=== PATIENT | female | born 1965 | race Caucasian/White ===

== ENCOUNTER 2016-04-04 10:35 | Emergency (ER) | payer SELFPAY ==
[~2016-04-04] VITALS: Ht 175.3 cm; Wt 65.0 kg
[~2016-04-04 10:35] MED LIST: CLON0.5T PO; MACR100C2 PO; PROZ20CA11 PO; ZOFR4TAB3 SL
[2016-04-04 10:37] VITALS: BP 148/68; PULSE 110; RESP 12; TEMP 98.4; O2SAT 98
[2016-04-04] MEDS ORDERED: SODIUM CHLOR 0.9% 1000 ML INJ 1,000 ML IV SCH (11:30)
[2016-04-04] MEDS ORDERED: SODIUM CHLORIDE 0.9% FLUSH 5 ML FLUSH IVF PRN (11:30)
[2016-04-04] MEDS ORDERED: ONDANSETRON HCL 4 MG/2 ML VIAL IVP ONE (11:30)
[2016-04-04 12:00] VITALS: BP 153/58; PULSE 78; RESP 16; O2SAT 97
--- NOTE | 2016-04-04 12:06 | PD ---
HPI Chief Complaint: GI Complaint Time Seen by Provider: 11:20 Travel History International Travel<30 days: No Contact w/Intl Traveler<30days: No Traveled to known affect area: No History of Present Illness HPI Patient is a 50-year-old female presenting to the emergency room for evaluation of nausea, vomiting, abdominal pain. Patient states her symptoms started 5 days ago on . She was unable to keep anything down. She states that she has not vomited yesterday or today but continues to feel nauseated and continues to have an abdominal pain. She also reports dysuria. Patient states when the symptoms started she felt chilled and very tired. Patient reports the abdominal pain is across the bilateral lower quadrants, worse on the right than the left. Patient reports the same symptoms occurred 2 months ago when she was diagnosed with a bladder infection. Patient's last menstrual cycle was a year ago and she has not been sexually active, she denies any vaginal discharge. Patient denies any illicit drug use or alcohol use. She does endorse tobacco use. PFSH Past Medical History Anxiety: Yes Depression: Yes Diminished Hearing: No Reproductive: Yes (endometriosis) Immunizations Current: No Past Surgical History Gynecologic Surgery: Yes (laparoscopic surgery for endometriosis) Social History Alcohol Use: No Tobacco Use: Yes (1 PK DAY) Substance Use: Yes (hx methadone, opioid abuse, denies currently) Allergies-Medications (Allergen,Severity, Reaction): Coded Allergies: No Known Allergies (Verified , 01/28/16) Reported Meds & Prescriptions Reported Meds & Active Scripts Active Zofran Odt (Ondansetron Odt) 4 Mg Tab 4 Mg SL Q6HR PRN Macrobid (Nitrofurantoin Monoh/Nitrofur Macro) 100 Mg Cap 100 Mg PO BID 10 Days Reported Clonazepam 0.5 Mg Tab 0.5 Mg PO DAILY Prozac (Fluoxetine HCl) 20 Mg Cap 20 Mg PO DAILY Review of Systems Except as stated in HPI: all other systems reviewed are Neg General / Constitutional: Positive: Fever (subjective), Chills HENT: No: Headaches, Lightheadedness Cardiovascular: No: Chest Pain or Discomfort Respiratory: No: Shortness of Breath Gastrointestinal: Positive: Nausea, Vomiting, Abdominal Pain, Loss of Appetite , No: Changes in Bowel Habits Genitourinary: Positive: Dysuria Musculoskeletal: Positive: Myalgias (lower back) Neurologic: No: Dizziness, Focal Abnormalities Psychiatric: No: Anxiety, Depression, Suicidal Ideations Physical Exam Narrative GENERAL: Thin, well-developed, alert female. Resting comfortably in no acute distress. SKIN: Warm and dry. HEAD: Atraumatic. Normocephalic. EYES: Pupils equal and round. No scleral icterus. No injection or drainage. ENT: No nasal bleeding or discharge. Mucous membranes pink and moist. NECK: Trachea midline. No JVD. CARDIOVASCULAR: Regular rate and rhythm. No murmur appreciated. RESPIRATORY: No accessory muscle use. Clear to auscultation. Breath sounds equal bilaterally. GASTROINTESTINAL: Abdomen soft, mildly tender to palpation in right and left lower quadrants, worse on the right than the left, nondistended. Hepatic and splenic margins not palpable. Positive bowel sounds no rebound, no guarding. MUSCULOSKELETAL: No obvious deformities. No clubbing. No cyanosis. No edema. Positive CVAT on the right NEUROLOGICAL: Awake and alert. No obvious cranial nerve deficits. Motor grossly within normal limits. Normal speech. PSYCHIATRIC: Appropriate mood and affect; insight and judgment normal. Data Data Last Documented VS Vital Signs Date Time Temp Pulse Resp B/P Pulse Ox O2 Delivery O2 Flow Rate FiO2 04/04/16 12:00 78 16 153/58 97 Room Air 04/04/16 10:37 98.4 Orders Beta Hcg (Quant/Titer) (04/04/16 11:30) Complete Blood Count With Diff (04/04/16 11:30) Comprehensive Metabolic Panel (04/04/16 11:30) Lipase (04/04/16 11:30) Lactic Acid (04/04/16 11:30) Urinalysis - C+S If Indicated (04/04/16 11:30) Ct Abd/Pel W Iv Contrast(Rout) (04/04/16 11:30) Iv Access Insert/Monitor (04/04/16 11:30) Ecg Monitoring (04/04/16 11:30) Oximetry (04/04/16 11:30) NPO (04/04/16 11:30) Ondansetron Inj (Zofran Inj) (04/04/16 11:30) Sodium Chlor 0.9% 1000 Ml Inj (Ns 1000 M (04/04/16 11:30) Sodium Chloride 0.9% Flush (Ns Flush) (04/04/16 11:30) Iohexol 350 Inj (Omnipaque 350 Inj) (04/04/16 13:28) Ketorolac Inj (Toradol Inj) (04/04/16 13:45) Orphenadrine Inj (Norflex Inj) (04/04/16 13:45) Labs Laboratory Tests Test 04/04/16 04/04/16 10:50 11:50 White Blood Count 12.0 TH/MM3 Red Blood Count 5.12 MIL/MM3 Hemoglobin 15.1 GM/DL Hematocrit 43.3 % Mean Corpuscular Volume 84.5 FL Mean Corpuscular Hemoglobin 29.5 PG Mean Corpuscular Hemoglobin 34.9 % Concent Red Cell Distribution Width 13.1 % Platelet Count 267 TH/MM3 Mean Platelet Volume 7.8 FL Neutrophils (%) (Auto) 62.0 % Lymphocytes (%) (Auto) 27.3 % Monocytes (%) (Auto) 9.4 % Eosinophils (%) (Auto) 0.6 % Basophils (%) (Auto) 0.7 % Neutrophils # (Auto) 7.4 TH/MM3 Lymphocytes # (Auto) 3.3 TH/MM3 Monocytes # (Auto) 1.1 TH/MM3 Eosinophils # (Auto) 0.1 TH/MM3 Basophils # (Auto) 0.1 TH/MM3 CBC Comment DIFF FINAL Differential Comment Sodium Level 136 MEQ/L Potassium Level 3.0 MEQ/L Chloride Level 101 MEQ/L Carbon Dioxide Level 26.6 MEQ/L Anion Gap 8 MEQ/L Blood Urea Nitrogen 12 MG/DL Creatinine 0.85 MG/DL Estimat Glomerular Filtration 71 ML/MIN Rate Random Glucose 94 MG/DL Lactic Acid Level 1.8 mmol/L Calcium Level 9.0 MG/DL Total Bilirubin 0.4 MG/DL Aspartate Amino Transf 9 U/L (AST/SGOT) Alanine Aminotransferase 14 U/L (ALT/SGPT) Alkaline Phosphatase 84 U/L Total Protein 7.3 GM/DL Albumin 3.5 GM/DL Lipase 247 U/L Human Chorionic Gonadotropin, 10 MIU/ML Quant Urine Color DARK-YELLOW Urine Turbidity HAZY Urine pH 6.0 Urine Specific [place] 1.027 Urine Protein 30 mg/dL Urine Glucose (UA) TRACE mg/dL Urine Ketones TRACE mg/dL Urine Occult Blood SMALL Urine Nitrite NEG Urine Bilirubin NEG Urine Urobilinogen 2.0 MG/DL Urine Leukocyte Esterase SMALL Urine RBC 3 /hpf Urine WBC 4 /hpf Urine Squamous Epithelial 10 /hpf Cells Urine Mucus MANY /lpf Microscopic Urinalysis Comment CULT NOT INDICATED MDM Medical Decision Making Medical Screen Exam Complete: Yes Emergency Medical Condition: Yes Medical Record Reviewed: Yes Interpretation(s) Last Impressions Abdomen/Pelvis CT 04/04/16 1130 Signed Impressions: Service Date/Time: Monday, April 04, 2016 13:17 - CONCLUSION: No acute CT findings in the abdomen or pelvis. Matt Maxwell MD Laboratory Tests Test 04/04/16 04/04/16 10:50 11:50 White Blood Count 12.0 TH/MM3 Red Blood Count 5.12 MIL/MM3 Hemoglobin 15.1 GM/DL Hematocrit 43.3 % Mean Corpuscular Volume 84.5 FL Mean Corpuscular Hemoglobin 29.5 PG Mean Corpuscular Hemoglobin 34.9 % Concent Red Cell Distribution Width 13.1 % Platelet Count 267 TH/MM3 Mean Platelet Volume 7.8 FL Neutrophils (%) (Auto) 62.0 % Lymphocytes (%) (Auto) 27.3 % Monocytes (%) (Auto) 9.4 % Eosinophils (%) (Auto) 0.6 % Basophils (%) (Auto) 0.7 % Neutrophils # (Auto) 7.4 TH/MM3 Lymphocytes # (Auto) 3.3 TH/MM3 Monocytes # (Auto) 1.1 TH/MM3 Eosinophils # (Auto) 0.1 TH/MM3 Basophils # (Auto) 0.1 TH/MM3 CBC Comment DIFF FINAL Differential Comment Sodium Level 136 MEQ/L Potassium Level 3.0 MEQ/L Chloride Level 101 MEQ/L Carbon Dioxide Level 26.6 MEQ/L Anion Gap 8 MEQ/L Blood Urea Nitrogen 12 MG/DL Creatinine 0.85 MG/DL Estimat Glomerular Filtration 71 ML/MIN Rate Random Glucose 94 MG/DL Lactic Acid Level 1.8 mmol/L Calcium Level 9.0 MG/DL Total Bilirubin 0.4 MG/DL Aspartate Amino Transf 9 U/L (AST/SGOT) Alanine Aminotransferase 14 U/L (ALT/SGPT) Alkaline Phosphatase 84 U/L Total Protein 7.3 GM/DL Albumin 3.5 GM/DL Lipase 247 U/L Human Chorionic Gonadotropin, 10 MIU/ML Quant Urine Color DARK-YELLOW Urine Turbidity HAZY Urine pH 6.0 Urine Specific [place] 1.027 Urine Protein 30 mg/dL Urine Glucose (UA) TRACE mg/dL Urine Ketones TRACE mg/dL Urine Occult Blood SMALL Urine Nitrite NEG Urine Bilirubin NEG Urine Urobilinogen 2.0 MG/DL Urine Leukocyte Esterase SMALL Urine RBC 3 /hpf Urine WBC 4 /hpf Urine Squamous Epithelial 10 /hpf Cells Urine Mucus MANY /lpf Microscopic Urinalysis Comment CULT NOT INDICATED Vital Signs Date Time Temp Pulse Resp B/P Pulse Ox O2 Delivery O2 Flow Rate FiO2 04/04/16 10:37 98.4 110 12 148/68 98 Room Air Differential Diagnosis Appendicitis versus gastroenteritis versus obstruction versus ovarian cyst versus withdrawal versus other Narrative Course Patient is a 50-year-old female presenting to emergency Department with 5 days of nausea, vomiting with abdominal pain. Patient was seen and evaluated in the emergency department on 01/27/17, at that time she presented with the same complaints and was diagnosed with a urinary tract infection and it was thought that her symptoms could be related to withdrawal. Patient denies any current illicit drug use. Labs and imaging ordered and pending patient mildly tachycardic related to dehydration and poor oral intake. IV fluids, Zofran ordered. CBC, urinalysis is unremarkable. Potassium 3.0. Patient be given oral replacement. CT scan abdomen and pelvis shows no acute abnormality. HCG level was 11 in January, it was repeated today at 10. Patient is advised to follow- up with masonry supervisor for further evaluation and management. Patient's low back pain is likely result of her laying in bed due to illness. Patient be provided with a prescription for anti-inflammatory medication and a muscle relaxer. She isn't encouraged to maintain oral intake, follow up with her primary doctor. She is encouraged to return to emergency department for any new or worsening symptoms. Patient was reassured at this time that there was no acute findings. She is stable for discharge. Diagnosis Primary Impression: Nausea & vomiting Qualified Code: R11.2 - Non-intractable vomiting with nausea, unspecified vomiting type Additional Impression: Abdominal pain Qualified Code: R10.32 - Left lower quadrant pain Referrals: [employer] Developer Primary Care Physician Patient Instructions: Acute Nausea and Vomiting (ED), General Instructions Additional Instructions: Follow-up with your primary care provider Follow-up with her masonry supervisor regarding hCG level Take medications as directed Return to emergency department for any new or worsening symptoms Maintain adequate fluid intake Med/Other Pt SpecificInfo: Prescription(s) given Scripts Ondansetron Odt (Zofran Odt)4 Mg Tab4 Mg SL Q6HR PRN (Nausea/Vomiting) 5 Days Ref 0 Prov:Julia Wesley 04/04/16 Cyclobenzaprine (Flexeril)10 Mg Tab10 Mg PO TID PRN (MUSCLE SPASM) 10 Days Ref 0 Prov:Julia Wesley 04/04/16 Ibuprofen 800 Mg [id number] Mg PO Q8H PRN (Pain/Inflammation) #60 TAB Ref 0 Prov:Julia Wesley 04/04/16 Disposition: 01 DISCHARGE HOME Condition: Stable Julia Wesley Apr 04, 2016 12:06
[2016-04-04 12:09] LABS: AUTOMATED NEUTROPHIL # 7.4 TH/MM3 (1.8-7.7); BASOPHIL # 0.1 TH/MM3 (0-0.2); BASOPHIL % 0.7 % (0.0-2.0); EOSINOPHIL # 0.1 TH/MM3 (0-0.4); EOSINOPHIL % 0.6 % (0.0-4.0); HEMATOCRIT 43.3 % (35.0-46.0); HEMO FLAGS DIFF FINAL; LYMPH % 27.3 % (9.0-44.0); LYMPHOCYTE # 3.3 TH/MM3 (1.0-4.8); MEAN CELL VOLUME 84.5 FL (80.0-100.0); MEAN CORPUSCULAR HEMOGLOBIN 29.5 PG (27.0-34.0); MEAN CORPUSCULAR HGB CONC 34.9 % (32.0-36.0); MONO % 9.4 % (0.0-8.0); PLATELET COUNT 267 TH/MM3 (150-450); RED BLOOD COUNT 5.12 MIL/MM3 (4.00-5.30); RED CELL DISTRIBUTION WIDTH 13.1 % (11.6-17.2)
[2016-04-04 12:10] LABS: BLOOD, URINE SMALL (NEG); COMMENT (UR) CULT NOT INDICATED; CULTURE IF INDICATED CULT NOT INDICATED; GLUCOSE,URINE TRACE mg/dL (NEG); KETONE, URINE TRACE mg/dL (NEG); MUCUS URINE MANY /lpf (OCC); NITRITE,URINE NEG (NEG); SQUAMOUS EPITHELIAL CELL URINE 10 /hpf (0-5); URINE COLOR DARK-YELLOW (YELLW/STRAW)
[2016-04-04 12:21] LABS: ANION GAP 8 MEQ/L (5-15); AST (GOT) 9 U/L (15-37); BICARBONATE 26.6 MEQ/L (21.0-32.0); BLOOD UREA NITROGEN 12 MG/DL (7-18); CHLORIDE 101 MEQ/L (98-107); GLOMERULAR FILTRATION RATE 71 ML/MIN (>89); SODIUM (NA) 136 MEQ/L (136-145)
[2016-04-04 12:26] LABS: ALKALINE PHOSPHATASE 84 U/L (45-117); ALT (GPT) 14 U/L (10-53); BETA HCG QUANT 10 MIU/ML (0-5); TOTAL BILIRUBIN ADULT 0.4 MG/DL (0.2-1.0)
[2016-04-04] MEDS ORDERED: IOHEXOL 350 MG/ML 10 ML VIAL (for RAD DIAG) IV ONE (13:28)
--- NOTE | 2016-04-04 13:40 | RADRPT ---
EXAM DATE/TIME: 04/04/2016 13:17 [facility] COMPARISON: No previous studies available for comparison. INDICATIONS : Mid abdominal pain. Nausea and vomiting. IV CONTRAST: 98 cc Omnipaque 350 (iohexol) IV ORAL CONTRAST: No oral contrast ingested. RADIATION DOSE: 9.96 CTDIvol (mGy) MEDICAL HISTORY : Endometriosis. SURGICAL HISTORY : None. ENCOUNTER: Initial ACUITY: 4 - 6 days PAIN SCALE: 5/10 LOCATION: Mid abdomen. TECHNIQUE: Volumetric scanning of the abdomen and pelvis was performed. Using automated exposure control and ad justment of the mA and/or kV according to patient size, radiation dose was kept as low as reasonably achievable to obtain optimal diagnostic quality images. FINDINGS: LOWER LUNGS: Minimal scarring or atelectasis in the posterior left lung base. LIVER: Tiny right lobe liver cyst. No suspicious mass or biliary ductal dilatation. The gallbladder is contr acted with subjective mild prominence of wall enhancement. No pericholecystic fluid or inflammatory c hanges. SPLEEN: Normal size without lesion. PANCREAS: Within normal limits. KIDNEYS: There is a tiny cyst involving the anterior mid to lower pole cortex of the left kidney. Right kidney is unremarkable. ADRENAL GLANDS: Within normal limits. VASCULAR: There is no aortic aneurysm. BOWEL/MESENTERY: The stomach, small bowel, and colon demonstrate no acute abnormality. There is no free intraperitone al air or fluid. ABDOMINAL WALL: Within normal limits. RETROPERITONEUM: There is no lymphadenopathy. BLADDER: No wall thickening or mass. REPRODUCTIVE: Within normal limits. INGUINAL: There is no lymphadenopathy or hernia. MUSCULOSKELETAL: Within normal limits for patient age. CONCLUSION: No acute CT findings in the abdomen or pelvis. Matt Maxwell MD on April 04, 2016 at 13:31 Board Certified Radiologist. This report was verified electronically.
[2016-04-04] MEDS ORDERED: KETOROLAC TROMETHAMINE 30 MG/ML (IVP) VIAL IV PUSH ONE (13:45)
[2016-04-04] MEDS ORDERED: ORPHENADRINE INJ 60 MG/2 ML AMP IV ONE (13:45)
[2016-04-04] MEDS ORDERED: CYCL1TAB29 PO (13:52)
[2016-04-04] MEDS ORDERED: ZOFR4TAB3 SL (13:52)
[2016-04-04] MEDS ORDERED: IBUP800T23 PO (13:52)
[2016-04-04] MEDS ORDERED: POTASSIUM CHLORIDE 20 MEQ CONTROLLED RELEASE TAB PO ONE (14:00)
[2016-04-04 14:31] VITALS: BP 143/82
== END 2016-04-04 15:19 | disposition home or self-care (01) ==
LOC: NEPC 10:35
DX: R11.2 Nausea with vomiting, unspecified (principal); R10.32 Left lower quadrant pain; R30.0 Dysuria
CPT/HCPCS: 74177; 80053; 81001; 83605; 83690; 84702; 85025; 96361; 96374; 96375; 99284; J1885; J2360; J2405; J7030; Q9967

== ENCOUNTER 2016-08-31 09:15 | Emergency (ER) | payer SELFPAY ==
[~2016-08-31 09:15] MED LIST changes: +CYCL1TAB29 PO; +IBUP800T23 PO
[2016-08-31 09:16] VITALS: BP 140/65; PULSE 93; RESP 18; TEMP 98.1; O2SAT 97
[2016-08-31] MEDS ORDERED: BUPR150CR PO (09:52)
--- NOTE | 2016-08-31 10:53 | PD ---
HPI Chief Complaint: GI Complaint Time Seen by Provider: 10:36 Travel History International Travel<30 days: No Contact w/Intl Traveler<30days: No Traveled to known affect area: No History of Present Illness HPI 50-year-old female complains of abdominal pain with nausea vomiting. Patient states that the symptoms started 3 days ago. Patient has history of endometriosis with recurrent abdominal pain and nausea vomiting. Patient states that the symptoms associate with her menstruation period in the past. Patient has been seen by emergency room multiple times in the past with same problem. Patient states that she has not been able to see ec teacher for follow-up. Patient states that she had laparoscopic surgery in the past which confirmed endometriosis. Patient denies any dysuria or frequency. Patient denies any vaginal discharge or bleeding. PFSH Past Medical History Anxiety: Yes Depression: Yes Diabetes: No Diminished Hearing: No Reproductive: Yes (endometriosis) Immunizations Current: No Tetanus Vaccination: > 5 Years Influenza Vaccination: No ?: Not Menopausal: Yes Past Surgical History Gynecologic Surgery: Yes (laparoscopic surgery for endometriosis) Social History Alcohol Use: No Tobacco Use: Yes (1 DAY) Substance Use: Yes (hx methadone, opioid abuse, denies currently) Allergies-Medications (Allergen,Severity, Reaction): Coded Allergies: No Known Allergies (Verified , 08/31/16) Reported Meds & Prescriptions Reported Meds & Active Scripts Active Iva (Hydrocodone-Acetaminophen) 5-325 mg Tab 1 Tab PO Q6H PRN Zofran Odt (Ondansetron Odt) 4 Mg Tab 4 Mg SL Q6HR PRN Phenergan (Promethazine HCl) 25 Mg Tablet 25 Mg PO Q6H PRN Ibuprofen 800 Mg Tab 800 Mg PO Q8H PRN Reported Wellbutrin SR 12 HR (Bupropion HCl) 150 Mg Tab 150 Mg PO Q12HR Clonazepam 0.5 Mg Tab 0.5 Mg PO DAILY Prozac (Fluoxetine HCl) 20 Mg Cap 20 Mg PO DAILY Review of Systems General / Constitutional: No: Fever Eyes: No: Visual changes HENT: No: Headaches Cardiovascular: No: Chest Pain or Discomfort Respiratory: No: Shortness of Breath Gastrointestinal: Positive: Nausea, Vomiting, Abdominal Pain Genitourinary: No: Dysuria Musculoskeletal: No: Pain Skin: No Rash Neurologic: No: Weakness Psychiatric: No: Depression Endocrine: No: Polydipsia Hematologic/Lymphatic: No: Easy Bruising Physical Exam Narrative GENERAL: Well-nourished, well-developed patient. SKIN: Focused skin assessment warm/dry. HEAD: Normocephalic. EYES: No scleral icterus. No injection or drainage. NECK: Supple, trachea midline. No JVD or lymphadenopathy. CARDIOVASCULAR: Regular rate and rhythm without murmurs, gallops, or rubs. RESPIRATORY: Breath sounds equal bilaterally. No accessory muscle use. GASTROINTESTINAL: Abdomen soft, nondistended. Patient has moderate tenderness on palpation diffusely over the abdomen. No rebound tenderness. No mass. MUSCULOSKELETAL: No cyanosis, or edema. BACK: Nontender without obvious deformity. No CVA tenderness. Data Data Last Documented VS Vital Signs Date Time Temp Pulse Resp B/P Pulse Ox O2 Delivery O2 Flow Rate FiO2 08/31/16 13:08 18 08/31/16 13:05 75 133/65 98 Room Air 08/31/16 09:16 98.1 Orders Complete Blood Count With Diff (08/31/16 10:46) Comprehensive Metabolic Panel (08/31/16 10:46) Lipase (08/31/16 10:46) Urinalysis - C+S If Indicated (08/31/16 10:46) Iv Access Insert/Monitor (08/31/16 10:46) Ecg Monitoring (08/31/16 10:46) Oximetry (08/31/16 10:46) Ketorolac Inj (Toradol Inj) (08/31/16 11:00) Ondansetron Inj (Zofran Inj) (08/31/16 11:00) Sodium Chlor 0.9% 1000 Ml Inj (Ns 1000 M (08/31/16 11:00) Abdomen, Flat & Upright (08/31/16 10:48) Potassium Chloride (Kcl) (08/31/16 12:30) Potassium Chlor 20 Meq Premix (Kcl 20 Me (08/31/16 12:30) Sodium Chlor 0.9% 1000 Ml Inj (Ns 1000 M (08/31/16 12:30) Ct Abd/Pel W Iv Contrast(Rout) (08/31/16 12:18) Metoclopramide Inj (Reglan Inj) (08/31/16 12:30) Diphenhydramine Inj (Benadryl Inj) (08/31/16 12:30) Iohexol 350 Inj (Omnipaque 350 Inj) (08/31/16 13:05) Labs Laboratory Tests Test 08/31/16 09:55 White Blood Count 12.7 TH/MM3 Red Blood Count 5.05 MIL/MM3 Hemoglobin 14.6 GM/DL Hematocrit 43.0 % Mean Corpuscular Volume 85.1 FL Mean Corpuscular Hemoglobin 28.9 PG Mean Corpuscular Hemoglobin 34.0 % Concent Red Cell Distribution Width 13.8 % Platelet Count 329 TH/MM3 Mean Platelet Volume 8.3 FL Neutrophils (%) (Auto) 80.0 % Lymphocytes (%) (Auto) 12.3 % Monocytes (%) (Auto) 7.1 % Eosinophils (%) (Auto) 0.0 % Basophils (%) (Auto) 0.6 % Neutrophils # (Auto) 10.2 TH/MM3 Lymphocytes # (Auto) 1.6 TH/MM3 Monocytes # (Auto) 0.9 TH/MM3 Eosinophils # (Auto) 0.0 TH/MM3 Basophils # (Auto) 0.1 TH/MM3 CBC Comment DIFF FINAL Differential Comment Sodium Level 135 MEQ/L Potassium Level 2.7 MEQ/L Chloride Level 98 MEQ/L Carbon Dioxide Level 26.5 MEQ/L Anion Gap 11 MEQ/L Blood Urea Nitrogen 16 MG/DL Creatinine 0.85 MG/DL Estimat Glomerular Filtration 71 ML/MIN Rate Random Glucose 98 MG/DL Calcium Level 10.1 MG/DL Total Bilirubin 0.6 MG/DL Aspartate Amino Transf 24 U/L (AST/SGOT) Alanine Aminotransferase 24 U/L (ALT/SGPT) Alkaline Phosphatase 85 U/L Total Protein 8.3 GM/DL Albumin 3.9 GM/DL Lipase 137 U/L [facility] Medical Decision Making Medical Screen Exam Complete: Yes Emergency Medical Condition: Yes Interpretation(s) Last Impressions Abdomen X-Ray 08/31/16 1048 Signed Impressions: Service Date/Time: August 11:14 - CONCLUSION: Nonspecific abdomen. Aimee Quevedo MD 12:13 PM. CBC WBC 12.7. 80 neutrophil. Potassium 2.7. [address] scan abdomen pelvis negative acute pathology. Differential Diagnosis Differential diagnosis including acute on chronic pain, gastritis, PUD, pancreatitis, cholecystitis, colitis, UTI, pyelonephritis, nephrolithiasis. Narrative Course 50-year-old female with recurrent abdominal pain with nausea vomiting. History endometriosis. Normal saline solution 1 L IV bolus. Zofran 4 mg IV. Toradol 30 mg IV. Repeat normal saline solution 1 L IV bolus. KCl 40 mEq by mouth given. KCl 20 mEq IV given. Reglan 10 mg IV. Benadryl 50 mg IV. Patient advised to be admitted for IV hydration. Patient refuses admission. Diagnosis Primary Impression: Recurrent abdominal pain Additional Impression: Hypokalemia Patient Instructions: General Instructions Additional Instructions: Take medications as directed. Follow-up with personal physician. Return if persistent problem or worse. Med/Other Pt SpecificInfo: Prescription(s) given Scripts Potassium Chloride ER 10 Meq Cap10 Meq PO BID #14 CAP Ref 0 Prov:Remy Singh MD 08/31/16 Hydrocodone-Acetaminophen (Iva)5-325 mg Tab1 Tab PO Q6H PRN (PAIN) #20 TAB Ref 0 Prov:Remy Singh MD 08/31/16 Ondansetron Odt (Zofran Odt)4 Mg Tab4 Mg SL Q6HR PRN (Nausea/Vomiting) #20 TAB Ref 0 Prov:Remy Singh MD 08/31/16 Promethazine (Phenergan)25 Mg [id number] Mg PO Q6H PRN (NAUSEA OR VOMITING) #20 TAB Ref 0 Prov:Remy Singh MD 08/31/16 Disposition: 01 DISCHARGE HOME Condition: Stable Remy Singh MD Aug 31, 2016 10:52
[2016-08-31 10:59] VITALS: RESP 18; O2SAT 99
[2016-08-31] MEDS ORDERED: ONDANSETRON HCL 4 MG/2 ML VIAL IV PUSH ONE (11:00)
[2016-08-31] MEDS ORDERED: KETOROLAC TROMETHAMINE 30 MG/ML (IVP) VIAL IV PUSH ONE (11:00)
[2016-08-31] MEDS ORDERED: SODIUM CHLOR 0.9% 1000 ML INJ 1,000 ML IV ONE ×2 (11:00→12:30)
[2016-08-31 11:19] LABS: AUTOMATED NEUTROPHIL # 10.2 TH/MM3 (1.8-7.7); BASOPHIL # 0.1 TH/MM3 (0-0.2); BASOPHIL % 0.6 % (0.0-2.0); HEMO FLAGS DIFF FINAL; LYMPH % 12.3 % (9.0-44.0); LYMPHOCYTE # 1.6 TH/MM3 (1.0-4.8); MEAN CELL VOLUME 85.1 FL (80.0-100.0); MEAN CORPUSCULAR HEMOGLOBIN 28.9 PG (27.0-34.0); MONO % 7.1 % (0.0-8.0); PLATELET COUNT 329 TH/MM3 (150-450); RED BLOOD COUNT 5.05 MIL/MM3 (4.00-5.30); RED CELL DISTRIBUTION WIDTH 13.8 % (11.6-17.2); WHITE BLOOD COUNT 12.7 TH/MM3 (4.0-11.0)
--- NOTE | 2016-08-31 11:27 | RADRPT ---
EXAM DATE/TIME: 08/31/2016 11:14 [facility] COMPARISON: No previous studies available for comparison. INDICATIONS : Vomiting. Abdominal pain. MEDICAL HISTORY : Endometriosis. SURGICAL HISTORY : Endometriosis removal. ENCOUNTER: Initial ACUITY: 4 - 6 days PAIN SCORE: 8/10 LOCATION: Bilateral lower quadrant abdomen FINDINGS: The bowel gas is nonspecific. There are no signs of obstruction or free air for technique. No defini te calcified stones are identified for technique. CONCLUSION: Nonspecific abdomen. Aimee Quevedo MD on August 31, 2016 at 11:25 Board Certified Radiologist. This report was verified electronically.
[2016-08-31 11:39] LABS: ALKALINE PHOSPHATASE 85 U/L (45-117); ALT (GPT) 24 U/L (10-53); ANION GAP 11 MEQ/L (5-15); AST (GOT) 24 U/L (15-37); BICARBONATE 26.5 MEQ/L (21.0-32.0); BLOOD UREA NITROGEN 16 MG/DL (7-18); CHLORIDE 98 MEQ/L (98-107); GLOMERULAR FILTRATION RATE 71 ML/MIN (>89); SODIUM (NA) 135 MEQ/L (136-145); TOTAL BILIRUBIN ADULT 0.6 MG/DL (0.2-1.0)
[2016-08-31 11:44] LABS: POTASSIUM 2.7 MEQ/L (3.5-5.1)
[2016-08-31] MEDS ORDERED: POTASSIUM CHLORIDE 20 MEQ CONTROLLED RELEASE TAB PO ONE (12:30)
[2016-08-31] MEDS ORDERED: METOCLOPRAMIDE HCL 10 MG/2 ML VIAL IV PUSH ONE (12:30)
[2016-08-31] MEDS ORDERED: diphenhydrAMINE HCL 50 MG/ML VIAL IV PUSH ONE (12:30)
[2016-08-31] MEDS ORDERED: POTASSIUM CHLOR 20 MEQ PREMIX 100 ML IV ONE (12:30)
[2016-08-31 13:05] VITALS: BP 133/65; PULSE 75; RESP 20; O2SAT 98
[2016-08-31] MEDS ORDERED: IOHEXOL 350 MG/ML 10 ML VIAL (for RAD DIAG) IV ONE (13:05)
[2016-08-31 13:08] VITALS: RESP 18
--- NOTE | 2016-08-31 13:12 | RADRPT ---
EXAM DATE/TIME: 08/31/2016 12:51 [facility] COMPARISON: CT ABDOMEN & PELVIS W CONTRAST, April 04, 2016, 13:17. INDICATIONS : Nausea and vomiting for four days. IV CONTRAST: 95 cc Omnipaque 350 (iohexol) IV ORAL CONTRAST: No oral contrast ingested. RADIATION DOSE: 4.59 CTDIvol (mGy) MEDICAL HISTORY : Endometriosis. SURGICAL HISTORY : None. ENCOUNTER: Initial ACUITY: 4 - 6 days PAIN SCALE: 5/10 LOCATION: Bilateral lower quadrant TECHNIQUE: Volumetric scanning of the abdomen and pelvis was performed. Using automated exposure control and ad justment of the mA and/or kV according to patient size, radiation dose was kept as low as reasonably achievable to obtain optimal diagnostic quality images. DICOM format image data is available electro nically for review and comparison. FINDINGS: The limited portion of the lung base visualized is clear. The appearance of the liver, spleen, pancreas, adrenal glands and kidneys is within normal limits. The abdominal aorta is normal in caliber. There is no retroperitoneal adenopathy. The visualized loop s of small and large bowel are unremarkable. There is no free fluid within the pelvis. No iliac or inguinal adenopathy is seen. The reproductive o rgans are intact. The visualized bony structures demonstrate degenerative changes within the spine but are otherwise in tact. CONCLUSION: 1. No findings to indicate bowel obstruction are seen. CT scan of the abdomen and pelvis is within no rmal limits. Rafita Mccoy MD on August 31, 2016 at 13:08 Board Certified Radiologist. This report was verified electronically.
[2016-08-31] MEDS ORDERED: NORC5TAB PO (13:33)
[2016-08-31] MEDS ORDERED: ZOFR4TAB3 SL (13:33)
[2016-08-31] MEDS ORDERED: PROM25TA10 PO (13:33)
[2016-08-31] MEDS ORDERED: POTA10CA PO (13:34)
[2016-08-31 14:18] LABS: BACTERIA, URINE RARE /hpf; BLOOD, URINE SMALL (NEG); COMMENT (UR) CULT NOT INDICATED; CULTURE IF INDICATED CULT NOT INDICATED; GLUCOSE,URINE NEG (NEG); KETONE, URINE 10 mg/dL (NEG); MUCUS URINE FEW /lpf (OCC); NITRITE,URINE NEG (NEG); SQUAMOUS EPITHELIAL CELL URINE 2 /hpf (0-5); URINE COLOR YELLOW (YELLW/STRAW)
== END 2016-08-31 15:33 | disposition home or self-care (01) ==
LOC: NEPD 09:15
DX: R10.9 Unspecified abdominal pain (principal); E87.6 Hypokalemia; R11.2 Nausea with vomiting, unspecified; F41.9 Anxiety disorder, unspecified; F32.9 Major depressive disorder, single episode, unspecified; F17.200 Nicotine dependence, unspecified, uncomplicated; Z79.899 Other long term (current) drug therapy
CPT/HCPCS: 74020; 74177; 80053; 81001; 83690; 85025; 96361; 96374; 96375; 99285; J1200; J1885; J2405; J2765; J3480; J7030; Q9967